=== PATIENT | male | born 1985 | race Two or more races ===

== ENCOUNTER 2025-02-08 11:03 | Emergency (ER) | payer MEDICAID, OTHER ==
[~2025-02-08] VITALS: Ht 177.8 cm; Wt 92.9 kg
--- NOTE | 2025-02-08 14:43 | ED.PDOC ---
History of Present Illness HPI Comments 39M presents to the Er w/ no prior MHx associated to the c/c of LE. Pt reports on having right knee pain on 02/05/25 which is 2 days before his Sx on his right arm. Pt was given Orrum 5 and it want working so he asked the Surgeon for which he submitted it to Or[facility] 10 but didn't state in the comments for the pt. Denies chills, fever, N/V/D, SOB, CP. Chief Complaint: Lower Extremity Time Seen by MD: 14:40 Reviewed Notes: Nurses Notes, Medications, Allergies Allergies: Coded Allergies: NO KNOWN ALLERGIES (Unverified , 02/08/25) Information Source: Patient Mode of Arrival: Ambulatory Severity: Moderate Timing: Days Duration: Since onset, Days Prehospital treatment: None Past Medical History PAST MEDICAL HISTORY: Denies Surgical History: Denies all surgeries Family History Family History: Reviewed,noncontributory to illness, Unknown Social History Smoker: Non-Smoker Alcohol: Denies ETOH Use Drugs: Denies Drug Use Lives In: Home Constitutional: denies: chills, diaphoresis, fatigue, fever, malaise, sweats, weakness, others EENTM: denies: blurred vision, double vision, ear bleeding, ear discharge, ear drainage, ear pain, ear ringing, eye pain, eye redness, hearing loss, mouth pain, mouth swelling, nasal discharge, nose bleeding, nose congestion, nose pain, photophobia, tearing, throat pain, throat swelling, voice changes, others Respiratory: denies: cough, hemoptysis, orthopnea, SOB at rest, shortness of breath, SOB with excertion, stridor, wheezing, others Cardiovascular: denies: chest pain, dizzy spells, diaphoresis, Dyspnea on exertion, edema, irregular heart beat, left arm pain, lightheadedness, palpitations, PND, syncope, others Gastrointestinal: denies: abdomen distended, abdominal pain, blood streaked bowels, constipated, diarrhea, dysphagia, difficulty swallowing, hematemesis, melena, nausea, poor appetite, poor fluid intake, rectal bleeding, rectal pain, vomiting, others Genitourinary: denies: burning, dysuria, flank pain, frequency, hematuria, incontinence, penile discharge, penile sore, pain, testicle pain, testicle swelling, urgency, others Neurological: denies: dizziness, fainting, headache, left sided numbness, left sided weakness, numbness, paresthesia, pre-existing deficit, right sided numbness, right sided weakness, seizure, speech problems, tingling, tremors, weakness, others Musculoskeletal: reports: others (Knee Pain/Elbow Pain); denies: back pain, gout, joint pain, joint swelling, muscle pain, muscle stiffness, neck pain Integumetry: denies: bruises, change in color, change in hair/nails, dryness, laceration, lesions, lumps, rash, wounds, others Allergic/Immunocompromised: denies: Difficulty Healing, Frequent Infections, Hives, Itching, others Hematologic/Lymphatic: denies: anemia, blood clots, easy bleeding, easy bruising, swollen glands, others Endocrine: denies: excessive hunger, excessive sweating, excessive thirst, excessive urination, flushing, intolerance to cold, intolerance to heat, unexplained weight gain, unexplained weight loss, others Psychiatric: denies: anxiety, bipolar disorder, depression, hopeless, panic disorder, schizophrenia, sleepless, suicidal, others All Other Systems: Reviewed and Negative Physical Exam General Appearance: Mild Distress, No Apparent Distress, Normal HEENT: Normal ENT Inspection, Pharyngeal Erythema, Pharynx Normal, TMs Normal Neck: Full Range of Motion, Non-Tender, Normal, Normal Inspection Respiratory: Chest Non-Tender, Lungs Clear, No Accessory Muscle Use, No Respiratory Distress, Normal Breath Sounds Cardiovascular: No Edema, No JVD, No Murmur, No Gallop, Normal Peripheral Pulses, Regular Rate/Rhythm Breast Exam: Deferred Gastrointestinal: No Organomegaly, Non Tender, No Pulsatile Mass, Normal Bowel Sounds, Soft Genitalia: Deferred Pelvic: Deferred Rectal: Deferred Extremities: No calf tenderness, Normal capillary refill, Normal inspection, Normal range of motion, Non-tender, No pedal edema Musculoskeletal : Location: Right Extremity Location: Knee Apperance: Swelling, Limited ROM, Tenderness: Moderate, Other (Tender medial ligaments) Neurologic: Alert, kennel assistant II-XII nml as Tested, No Motor Deficits, Normal Affect, Normal Mood, No Sensory Deficits Cerebellar Function: Normal Reflexes: Normal Skin: Dry, Normal Color, Warm Peripheral Pulses: 1+ carotid (R), 1+ carotid (L) Lymphatic: No Adenopathy Was a procedure done? 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 and the radiologist recommended MRI if the patient may have an MCL Patient order a knee immobilizer and he will need to follow up with the his doctor or an orthopedist Time of 1ST Reevaluation: 15:10 Reevaluation 1ST: Unchanged Time of 2ND Reevaluation: 17:02 Reevaluation 2ND: Improved Consultation: PCP, Other (Orthopedist) Patient Education/Counseling: Diagnosis, Treatment, Prognosis, Need For Follow Up Family Education/Counseling: Diagnosis, Treatment, Prognosis, Need For Follow Up, No Family Present SEPSIS Sepsis Screen Date sepsis recognized/suspect: Feb 08, 2025 Time Sepsis recognized/suspect: 1136 Recent Procedure: No On Antibiotic Therapy: No Respiratory Rate >20: No Heart Rate >90: No Temp<36 C (96.8 F) or >38.3 C: No SBP <90 or MAP <65 mmHG: No New Acute Mental Status Change: No Is the patient on CPAP, BIPAP,: No Physician Orders Ct R Knee Wo Contrast (02/08/25 16:13) Vital Signs Date Time Temp Pulse Resp B/P (MAP) Pulse Ox O2 Delivery O2 Flow Rate FiO2 02/08/25 11:34 98.6 83 20 164/95 (118) 97 98.6 Departure 1 Departure Time of Disposition: 17:03 Impression: Primary Impression: Soft tissue injury of right knee Disposition: 01 HOME / SELF CARE / HOMELESS Condition: Fair Additional Instructions: You need to follow up with your PCP and or an orthopedist e-Prescriptions Hydrocodone-Acetaminophen (Hydrocodone Bitartrate/AC 10-325 mg) 1 Tab Tab 1 TAB PO TID for 8 Days, #24 TAB Prov: SAMMY SORENSEN MD 02/08/25 Discharged With: Self Critical Care Note Critical Care Time?: No Stability Stability form required: No Heart Score Heart Score: Heart Score Response (Comments) Value History N/A 0 EKG N/A 0 Age <45 0 Risk Factors No known risk factors 0 Troponin N/A 0 Total 0 I personally scribed for SAMMY SORENSEN MD ([email or web address]) on 02/08/25 at 14:43. Electronically submitted by Tristian Rosales ([email or web address]). SAMMY SORENSEN MD Feb 08, 2025 14:43
--- NOTE | 2025-02-08 16:51 | DVH ---
EXAM: CT CT R KNEE WO CONTRAST HISTORY: Possible MCL COMPARISON: None TECHNIQUE: Noncontrast axial CT images of the right hip were performed. Sagittal and coronal reformat marce images were obtained. This CT exam was performed using one or more of the following dose reductio n techniques: Automated exposure control, adjustment of the mA and/or kV according to patient size, o r use of iterative reconstruction technique. Radiation Dose Information: CT Dose: CTDI volume is 7.7 mGy. Dose-length product is 231 mGy*cm FINDINGS: No acute of the distal femur, proximal tibia or fibula, or patella There is narrowing of the lateral joint space and patellofemoral joint space. There are large osteophytes along all articular surfaces. Corticated 8 bony density either within or adjacent to posterior of the meniscus. Trace joint effusion IMPRESSION: 1. . There is moderately severe degenerative change in the lateral joint compartment and patellofemor al joint compartment. Question of a joint mouse (loose body) in the lateral joint compartment 2. MCL tear can not be diagnosed on CT . 3. MRI of the knee is recommended
[2025-02-08 17:05] VITALS: BP 144/68; PULSE 55; RESP 17; TEMP 97.9; O2SAT 98
[2025-02-08] MEDS ORDERED: HYDR-4798 PO (17:05)
== END 2025-02-08 17:57 | disposition home or self-care (01) ==
LOC: ER 11:03
DX: S89.81XA Other specified injuries of right lower leg, initial encounter (principal); X58.XXXA Exposure to other specified factors, initial encounter; Y93.89 Activity, other specified; Y92.89 Other specified places as the place of occurrence of the external cause; Y99.8 Other external cause status
CPT/HCPCS: 29505; 73700